=== PATIENT | male | born 1980 | race Caucasian/White ===

== ENCOUNTER 2021-05-13 03:04 | Emergency (ER) | payer OTHER, SELFPAY ==
[2021-05-13 03:05] VITALS: BP 142/73; PULSE 89; RESP 16; TEMP 36.3; O2SAT 98; BMI 28.3
--- NOTE | 2021-05-13 03:17 | RAD_ITS ---
STUDY: X-RAY CHEST REASON FOR EXAM: Male, 41 years old. chest pain TECHNIQUE: Single AP portable view of the chest. COMPARISON: None. FINDINGS: The lungs are clear and expanded. There is no demonstrated pleural abnormality. Normal size heart. Normal mediastinum and paolo. Normal visualized pulmonary arteries. Normal visualized aortic arch and descending thoracic aorta. Normal visualized thoracic spine. Normal visualized ribs, clavicles, and shoulders. There is no demonstrated abnormality of the visualized soft tissue structures of the upper abdomen. RAD/Chest 1 View (Portable) IMPRESSION: Normal x-ray examination of the chest. Electronically Signed: Becki Jimenes MD at 3:47 EDT , Service support ,
--- NOTE | 2021-05-13 03:17 | EKG12_ITS ---
Test Reason : CP Blood Pressure : / mmHG Vent. Rate : 086 BPM Atrial Rate : 086 BPM P-R Int : 180 ms QRS Dur : 078 ms QT Int : 358 ms P-R-T Axes : 066 044 044 degrees QTc Int : 428 ms Normal sinus rhythm Possible Acute pericarditis Abnormal ECG Confirmed by MARY ACOSTA, NEREYDA ([id number]), pictures editor MARISOL DUBOIS ([id number]) on 05/13/2021 12:03:29 PM Referred By: JOHN Confirmed By:NEREYDA HERNANDEZ MD
[2021-05-13 03:27] LABS: Absolute Lymphocyte Count 3.09 X10^3/uL (0.83-4.51); Absolute Neutrophil Count 7.8 X10^3/uL (2.0-7.7); Basophil# 0.06 X10^3/uL; Basophil% 0.5 % (0-1); Eosinophil# 0.47 X10^3/uL; Eosinophils% 3.7 % (0-5); Hematocrit 48.9 % (40-54); Hemoglobin 16.1 g/dL (13.0-16.5); Lymphocyte # 3.09 X10^3/ul (0.83-4.51); Lymphocyte % 24.5 % (19-41); Mean Corp Hgb Conc 32.9 g/dL (32-36); Mean Corpuscular Hgb 29.1 pg (27.0-32.0); Mean Corpuscular Volume 88.3 fL (80-94); Monocyte# 1.12 X10^3/uL; Monocyte% 8.9 % (0-10); NRBC Flagged by Analyzer 0 % (0-5); Neutrophil # 7.81 X10^3/uL (2.7-7.7); Neutrophil % 62.1 % (47-70); Platelet Count 384 K/mm3 (150-450); RBC Distribution Width CV 12.5 % (11.6-14.6); RBC Distribution Width SD 40.9 fl (35.1-43.9); Red Blood Count 5.54 M/mm3 (4.6-6.2); White Blood Count 12.6 K/mm3 (4.4-11.0)
[2021-05-13] MEDS: Ondansetron 4 MG/2 ML Vial IV (03:28)
[2021-05-13] MEDS: Aspirin 81 MG TAB.CHEW 324 MG PO (03:28)
[2021-05-13 03:41] LABS: Anion Gap 6 (5-15); BUN 17 mg/dL (7-18); BUN/Creat Ratio 13.9 RATIO (10-20); Calcium,Total 8.8 mg/dL (8.5-10.1); Chloride 103 mmol/L (98-107); Creatinine, Serum 1.22 mg/dL (0.70-1.30); EST Glomerular Filtration Rate 69 mL/min (>60); Est Glom Filt Rate - Afr Amer 83 mL/min (>60); Estimated Creatinine Clearance 83.15 ml/min; Glucose 116 mg/dL (74-106); Potassium 3.3 mmol/L (3.5-5.1); Sodium Level 139 mmol/L (136-145); Troponin-I HS 21.4 pg/mL (3.0-78.5)
[2021-05-13 03:47] LABS: D-Dimer Quantitative (DVT/PE) 0.28 FEU/ug/m (0.27-0.49)
[2021-05-13 04:07] LABS: Erythrocyte Sedimentation Rate 18 mm/hr (0-20)
--- NOTE | 2021-05-13 04:42 | CT_ITS ---
STUDY: CTA CHEST REASON FOR EXAM: Male, 41 years old. r/o PE, r/o pericardial effusion RADIATION DOSAGE (If Supplied By Facility): CTDIvol = ( 8.52 ) mGy, DLP = ( 452.99 ) mGycm TECHNIQUE: The examination was performed with the intravenous administration of IV 100mL Isovue-370. Post-processing of the angiographic images was performed, with multiplanar reformation and 3D reconstruction. Individualized dose optimization techniques were used for this CT. COMPARISON: May 13, 2021 and chest x-ray FINDINGS: Normal enhancement of the main pulmonary artery and right and left pulmonary arteries. Normal enhancement of the bilateral peripheral pulmonary arteries. There is no demonstrated pulmonary embolism. Normal thoracic aorta and visualized great vessels. There is no demonstrated aortic dissection. Normal heart and pericardium. There are nonspecific subcentimeter mediastinal lymph nodes. Normal hilar regions. Normal visualized trachea and bronchi. The lungs are hyperinflated. There is no focal consolidation or pleural effusion. There is no pneumothorax. Normal pulmonary parenchyma. Normal pleura. Normal chest wall structures. Normal osseous structures. Normal visualized upper abdomen. CT/CTA Chest W/WO Contrast IMPRESSION: No Visualized pulmonary embolism. No evidence of dissection. Findings suggestive of underlying chronic obstructive pulmonary disease. Electronically Signed: Lynnette Chavez MD at 5:57 EDT Tel , Service support ,
[2021-05-13 04:44] VITALS: BP 131/88; PULSE 71; RESP 20; O2SAT 91
--- NOTE | 2021-05-13 04:49 | ED.VIS.CHEST ---
HPI History of Present Illness Chief Complaint: Chest Pain Informant: patient Onset/Context/Timing Onset: Yesterday Timing: Intermittent Quality: Positive for Sharp Location: Right Chest and Left Chest Current Severity: Mild Maximum Severity: Moderate Worsened By: Breathing Relieved By: Nothing Associated Symptoms: Negative for Nausea, Vomiting, Diaphoresis, Dyspnea, Cough, Fever and Lightheadedness Narrative Narrative: 41-year-old male presenting with chest pain. Patient states he had approximately 1.5 hours of chest pain last night. He then woke up with chest pain just prior to arrival. He states it is a sharp pain that is worsened with deep breathing. Pain is worse with laying flat, he denies any change with leaning forward. Denies recent illness. Denies fever or cough. No PE/DVT risk factors. Prior Similar Symptoms: No Recent Illness/Hospitalization: No CVD Risk Factors: Negative for Hypertension, Diabetes, Hypercholesterolemia, Family History 1' </=55 and Smoking PE Risk Factors: Negative for Recent Travel/Surgery, Recent Immobilization, Prior DVT or PE, Cancer and OCP + Smoking + >/=35 TAD Risk Factors: Negative for Marfan's Syndrome, Hypertension and Family History PFSH PFSH Medical History (Updated 05/13/21 @ 07:[address] Dunia Fitzgerald MD) Anxiety Allergy/AdvReac Type Severity Reaction Status Date / Time No Known Allergies Allergy Verified 05/13/21 03:08 Surgical History (Updated 05/13/21 @ 03:09 by Candis Ellington) History of ankle surgery Social History Smoking Status: Never smoker ROS ROS ED Constitutional Constitutional ED: Denies fever(s) Eyes Eyes: Denies change in vision ENT ENT ED: Denies rhinorrhea or sore throat Cardiovascular Cardiovascular: Reports chest pain; Denies palpitations Respiratory/Chest Respiratory/Chest: Denies cough or dyspnea Gastrointestinal Gastrointestinal: Denies abdominal pain, diarrhea, nausea or vomiting Genitourinary Genitourinary ED: Denies dysuria Musculoskeletal Musculoskeletal: Denies myalgias Integumentary Denies rash Neurologic Neurologic: Denies headache(s) Psychiatric Psychiatric: Denies suicidal thoughts EXAM Physical Exam Const Vital Signs: 05/13/21 03:05 05/13/21 03:08 05/13/21 03:19 Temperature 97.3 F L Temperature Source Temporal Pulse Rate 89 Respiratory Rate 16 Respiratory Effort Normal Respiratory Pattern Normal Blood Pressure 142/73 H Blood Pressure Mean 96 Pulse Ox 98 Oxygen Delivery Method Room Air Room Air 05/13/21 04:44 05/13/21 05:00 05/13/21 06:00 Temperature Temperature Source Pulse Rate 71 72 81 Respiratory Rate 20 H 17 23 H Respiratory Effort Respiratory Pattern Blood Pressure 131/88 H 126/90 H 144/92 H Blood Pressure Mean 102 102 109 Pulse Ox 91 96 97 Oxygen Delivery Method Room Air Room Air Room Air Positive well nourished and well developed General Appearance ED: well developed HEENT Reports normocephalic and head/scalp atraumatic Eyes PERRL and EOMs intact bilaterally Neck supple General: Negative for tenderness Chest Wall inspection of chest normal Resp normal respiratory effort and clear to auscultation bilaterally Cardio regular rate and regular rhythm GI soft to palpation, non-tender and non-distended Palpation: soft; Negative for guarding or rebound tenderness present no CVA tenderness Extremity normal to inspection Neuro oriented x3 Sensorium / Orientation: alert Psych mental status grossly normal Skin no rashes or lesions noted Heart Score History: Moderately Suspicious ECG: Nonspecific Repolarization Age: </= 45 years Risk Factors: No Risk Factors Troponin: </= Normal Limit Score: 2 MDM MDM MDM Narrative Medical decision making narrative: Patient was given aspirin on arrival. He declined pain medication. EKG is sinus rhythm rate of 86 with FL depression and mild diffuse ST elevation suggestive of pericarditis. Troponin and delta troponin are negative. CTA chest shows no evidence of pericardial effusion, no PE. Patient is resting comfortably on reevaluation. He is advised to take NSAIDs for pain. Advised to follow up with primary care physician. Advised return to ED for worsening complaints. Lab Data Attestation: I reviewed the patient's lab results. Labs: Laboratory Results - last 24 hr 05/13/21 05/13/21 05/13/21 03:05 03:05 03:05 WBC 12.6 H RBC 5.54 Hgb 16.1 Hct 48.9 MCV 88.3 MCH 29.1 MCHC 32.9 RDW Std Deviation 40.9 RDW Coeff of Jennyfer 12.5 Plt Count 384 MPV 10.0 Immature Gran % (Auto) 0.300 Neut % (Auto) 62.1 Lymph % (Auto) 24.5 Stephenson % (Auto) 8.9 Eos % (Auto) 3.7 Baso % (Auto) 0.5 Absolute Neuts (auto) 7.8 H Absolute Lymphs (auto) 3.09 Nucleated RBC % 0 ESR 18 D-Dimer Quant (PE/DVT) Sodium 139 Potassium 3.3 L Chloride 103 Carbon Dioxide 30.0 Anion Gap 6 BUN 17 Creatinine 1.22 Estim Creat Clear Calc 83.15 Est GFR (MDRD) Af Amer 83 Est GFR (MDRD) Non-Af 69 BUN/Creatinine Ratio 13.9 Glucose 116 H Calcium 8.8 Troponin I High Sens 21.4 05/13/21 05/13/21 03:25 05:50 WBC RBC Hgb Hct MCV MCH MCHC RDW Std Deviation RDW Coeff of Jennyfer Plt Count MPV Immature Gran % (Auto) Neut % (Auto) Lymph % (Auto) Stephenson % (Auto) Eos % (Auto) Baso % (Auto) Absolute Neuts (auto) Absolute Lymphs (auto) Nucleated RBC % ESR D-Dimer Quant (PE/DVT) 0.28 Sodium Potassium Chloride Carbon Dioxide Anion Gap BUN Creatinine Estim Creat Clear Calc Est GFR (MDRD) Af Amer Est GFR (MDRD) Non-Af BUN/Creatinine Ratio Glucose Calcium Troponin I High Sens 23.4 Radiography Chest X-Ray - ED: 1 View, Read by ED Physician, Read by Radiologist and No Acute Disease Diagnostic Testing: Radiology Impression Chest X-Ray 05/13/21 03:17 IMPRESSION: Normal x-ray examination of the chest. Electronically Signed: Becki Jimenes MD at 3:47 EDT , Service support , Chest CTA 05/13/21 04:42 IMPRESSION: No Visualized pulmonary embolism. No evidence of dissection. Findings suggestive of underlying chronic obstructive pulmonary disease. Electronically Signed: Lynnette Chavez MD at 5:57 EDT Tel , Service support , EKG Initial EKG: Attestation: I personally reviewed and interpreted this EKG as follows: Interpretation: Sinus Rhythm Comments: pericarditis Discharge Plan Triage Chief Complaint: Chest Pain ED Provider: Dunia Fitzgerald Dx/Rx/DC Orders Clinical Impression: Chest pain, Pericarditis Instructions: ED Pericarditis Primary Care Provider: Sahil Leonardo Referrals: Sahil Leonardo MD [Primary Care Provider] - Disposition Disposition: Home, Self Care
[2021-05-13 05:00] VITALS: BP 126/90; PULSE 72; RESP 17; O2SAT 96
[2021-05-13 06:00] VITALS: BP 144/92; PULSE 81; RESP 23; O2SAT 97
[2021-05-13 06:23] LABS: Troponin-I HS 23.4 pg/mL (3.0-78.5)
[2021-05-13 07:11] VITALS: BP 164/93; PULSE 80; RESP 19; O2SAT 95
== END 2021-05-13 07:18 | disposition home or self-care (01) ==
PROVIDERS: Emergency Provider Emergency Medicine; PCP Family Medicine
DX: I31.9 Disease of pericardium, unspecified (principal); R07.9 Chest pain, unspecified
CPT/HCPCS: 71045; 71275; 80048; 84484; 85025; 85379; 85652; 93005; 96374; 99285; Q9967; A4216; J2405

== ENCOUNTER → 2023-04-25 | Outpatient (CLI) | payer OTHER, SELFPAY | END | disposition home or self-care (01) | LOC: SL 10:56 | PROVIDERS: PCP Family Medicine; Referring Provider Otolaryngology Otolaryngology/Facial Plastic Surgery; Visit Provider Otolaryngology Otolaryngology/Facial Plastic Surgery | DX: R06.83 Snoring (principal); G47.33 Obstructive sleep apnea (adult) (pediatric) | CPT/HCPCS: 95806 ==